=== PATIENT | male | born 1965 | race Caucasian/White ===

== ENCOUNTER 2021-09-22 06:32 | Day surgery (SDC) | payer OTHER ==
[2021-09-20 12:22] VITALS: BMI 29.0
[2021-09-22] MEDS ORDERED: CYCLOPENTOLATE 2% OPHTH SOLN 2 ML BOTTLE ONE (06:52)
[2021-09-22] MEDS ORDERED: TROPICAMIDE 1% OPHTH SOLN 15 ML BOTTLE ONE (06:53)
[2021-09-22] MEDS ORDERED: CIPROFLOXACIN 0.3% EYE DROPS 5 ML BOTTLE ONE (06:53)
[2021-09-22] MEDS ORDERED: PHENYLEPHRINE 2.5% OPHTH SOLN 15 ML BOTTLE ONE (06:54)
[2021-09-22] MEDS ORDERED: CYCLOPENTOLATE 2% OPHTH SOLN 2 ML BOTTLE OS ONE ×3 (07:10→07:20)
[2021-09-22] MEDS ORDERED: TROPICAMIDE 0.5% OPHTHALMIC SOLN 15 ML BOTTLE OS ONE ×3 (07:10→07:20)
[2021-09-22] MEDS ORDERED: PHENYLEPHRINE 2.5% OPHTH SOLN 15 ML BOTTLE OS ONE ×3 (07:10→07:20)
[2021-09-22] MEDS ORDERED: CIPROFLOXACIN 0.3% EYE DROPS 5 ML BOTTLE OS ONE ×3 (07:10→07:20)
[2021-09-22] MEDS ORDERED: EPINEPHrine/PF 1 MG/1 ML (1:1,000) AMPULE ONE (07:30)
[2021-09-22] MEDS ORDERED: LIDOCAINE 1% P/F 10 MG/ML VIAL ONE (07:30)
[2021-09-22] MEDS ORDERED: NEO/POLYMYX B SULF/DEXAMETH OPHTHALMIC 5ML BOTTLE ONE (07:31)
[2021-09-22] MEDS ORDERED: CARBACHOL 0.01% INTRA-OCULAR 1.5 ML VIAL ONE (07:31)
[2021-09-22] MEDS ORDERED: TRYPAN BLUE 0.5 ML DISP.SYRIN ONE (07:31)
[2021-09-22] MEDS ORDERED: ACETYLCHOLINE 1:100 INTRA-OCUL 20 MG/2 ML KIT ONE (07:31)
[2021-09-22] MEDS ORDERED: TETRACAINE 0.5% OPHTH SOLN 2 ML BOTTLE ONE (07:31)
[2021-09-22] MEDS ORDERED: BSS (NA/CA/MG/K) BALANCED SALT SOLUTION OPHTH SOLN 15 ML BOTTLE ONE (07:31)
[2021-09-22] MEDS ORDERED: PHENYLEPHRINE/KETOROLAC 4 ML VIAL IO ONE (07:31)
[2021-09-22] MEDS ORDERED: MIDAZOLAM HCL 2 MG/2 ML SINGLE DOSE VIAL ONE (08:12)
[2021-09-22 08:51] VITALS: TEMP 97.4
[2021-09-22 09:08] VITALS: BP 142/84; PULSE 94
== END 2021-09-22 09:00 | disposition home or self-care (01) ==
LOC: FASU 06:32
PROVIDERS: ATTEND Ophthalmology
PROC: 08RK3JZ Replacement of Left Lens with Synthetic Substitute, Percutaneous Approach (ICD-10-PCS; principal; 2021-09-22 08:20)
DX: H26.8 Other specified cataract (principal)
CPT/HCPCS: 82962; J1097